=== PATIENT | female | born 1950 | race Caucasian/White ===

== ENCOUNTER 2024-12-21 09:08 | Outpatient (CLI) | payer MEDICARE, SELFPAY ==
--- OUTSIDE RECORDS SUMMARY | 2024-12-21 09:31 | XMS_ITS | Referral Summary ---
Author Organization [facility] Address [address] [place] [phone] Care Team Providers Care Event Crew Technician Name Role Phone Sebastian Colmenares MD Primary Care Provider [phone] Encounters Date Type Department Care Team Description 12/18/2024 9:40 AM CDT - 12/18/2024 11:59 PM CDT Hospital Encounter [facility] Medical Office Building [address] [place] [phone] Varicose veins of leg with pain, right Discharge Disposition: Discharge to home or self care 12/15/2024 7:22 AM CDT - 12/15/2024 11:59 PM CDT Hospital Encounter [facility] Office Building [address] [place] [phone] Varicose veins of leg with pain, right Discharge Disposition: Discharge to home or self care 12/14/2024 Documentation [facility] Vascular and Vein Surgery [address] [place] [phone] Carmen Wolff MA 12/14/2024 Orders Only [facility] Vascular and Vein Surgery [address] [place] [phone] Josiah Higgins MD 12/13/2024 Telephone [facility] Vascular and Vein Surgery [address] [place] [phone] Josiah Higgins MD 11/29/2024 1:15 PM CDT Office Visit [facility] Orthopedics and Sports Medicine [address] [place] [address], [place] [phone] Luis Alberto Georges PA Trochanteric bursitis of left hip (Primary Dx) 09/29/2024 Documentation [facility] Vascular and Vein Surgery [address] [facility] [address] [place] [phone] Proper, Ester Lundberg RN from Last 3 Months Allergies Active Allergy Reactions Criticality Noted Date Comments Amlodipine Dizziness Low 10/14/2017 Iodine Rash Medium 06/19/2020 Medications atorvastatin (LIPITOR) 20 mg tabletIndication s:hyperlipidemia Take 0.5 tablets (10 mg total) by mouth nightly 0 Active cholecalciferol (VITAMIN D-3) 25 mcg (1,000 unit) tabletIndication s:Prevention of Vitamin D Deficiency Take 1 tablet (1,000 Units total) by mouth daily after lunch [address] (NexIUM) 40 mg capsuleIndicatio ns:Stress Ulcer Prophylaxis,Ashley tment of Non-Bleeding Gastric Disorder Take 1 capsule (40 mg total) by mouth daily before breakfast 0 Active estradioL (VAGIFEM) 10 mcg tablet INSERT 1 TABLET VAGINALLY TWICE A WEEK 0 Active valsartan-hydroc hlorothiazide (DIOVAN-HCT) 160-25 mg per tabletIndication s:hypertension Take 1 tablet by mouth every morning 0 Active cyclobenzaprine (FLEXERIL) 10 mg tabletIndication s:Muscle Spasm Take 1 tablet (10 mg total) by mouth as needed 1 Active Ca carb-Ca gluc-Mg ox-Mg gluco 500 mg calcium -250 mg tabletIndication s:Hypocalcemia Prevention Take 500 mg by mouth daily after lunch Active coenzyme Q10 100 mg capsuleIndicatio ns:supplement Take 1 capsule (100 mg total) by mouth nightly Active lactobacillus combination no.9 4 billion cell capsuleIndicatio ns:supplement Take 1 tablet by mouth nightly Active cyanocobalamin, vitamin B-12, 1,000 mcg/mL dropsIndications :Prevention of Vitamin B12 Deficiency Take 1,000 mcg by mouth nightly Active buPROPion XL (WELLBUTRIN XL) 300 mg 24 hr tabletIndication s:Anxiety with Depression Take 1 tablet (300 mg total) by mouth as needed 1 Active ascorbic acid (VITAMIN C) 500 mg tablet,chewableI ndications:suppl ement Take 1 tablet/chew tab (500 mg total) by mouth every morning Active melatonin tabletIndication s:sleep Take 1 tablet (1 mg total) by mouth nightly as needed for sleep Active loratadine (CLARITIN) 10 mg tabletIndication s:Allergic Rhinitis Take 1 tablet (10 mg total) by mouth as needed for allergies Active acetaminophen 500 mg capsuleIndicatio ns:Pain Take 2 capsules (1,000 mg total) by mouth every 6 (six) hours as needed for pain 2 Active oxyCODONE (ROXICODONE) 5 mg immediate release tabletIndication s:Pain Take 1 tablet (5 mg total) by mouth every 6 (six) hours as needed for pain 60 tablet 2 Active Additional Information Patient not taking.Reported on 08/31/2024 cefuroxime (CEFTIN) 250 mg tablet 2 Active ergocalciferol (VITAMIN D) 50,000 unit capsule TAKE 1 CAPSULE BY MOUTH TWICE A MONTH 2 Active gabapentin (NEURONTIN) 100 mg capsuleIndicatio ns:History of lumbar surgery,Degenera tive disc disease, lumbar,DDD (degenerative disc disease), lumbar Take 1 capsule (100 mg total) by mouth 3 (three) times a day 90 capsule [address] (CYMBALTA) 60 mg capsule 3 Active ALPRAZolam (XANAX) 0.5 mg tablet Bring both tablets to office day of procedure. 2 tablet 5 Active Hospital, Clinic, or Other Facility Administered Medication Ordered Dose Route Frequency Start Date End Date Status lidocaine (XYLOCAINE) 10 mg/mL (1 %) injection 1 mLIndications:Admi nistration of Local Anesthesia 1 mL One-Time Injection 11/29/2024 11/29/2024 Ended triamcinolone (KENALOG) 40 mg/mL injection 40 mgIndications:Troc hanteric bursitis of left hip 40 mg intra-artic One-Time Injection 11/29/2024 11/29/2024 Ended Active Problems Problem Noted Date Diagnosed Date Varicose veins of leg with pain, right 5 Varicose veins of lower extremity with pain, rig ht 08/31/2024 Assessment & Plan (08/31/2024 10:20 AM ETL LEAD): Patient has significant reflux at the right saphenofemoral junction with large varicosities of the right lower extremity that are persistently painful. She has tried and failed conservative measures I have recommended proceeding with radiofrequency ablation of the right great saphenous vein with phlebectomies. The procedure indications and all associated risks have been explained to the patient. She voiced understanding and agrees to proceed. Trochanteric bursitis of left hip 05/01/2022 Lumbar disc disease 03/06/2022 Lumbar radiculopathy 03/05/2022 Degeneration of intervertebral disc of cervical region 10/14/2017 Spinal stenosis of lumbar region 04/23/2016 Immunizations Immunization Administration Dates Next Due Influenza, Quadrivalent, Rec ombinant, Egg Free, Preservative Free, Intramuscular 07/05/2021 Influenza, Quadrivalent, Spl it, Preservative Free, Intramuscular 07/25/2020,07/28/2019,07/12/2018 Influenza, Trivalent, Preser vative Free, Intramuscular 06/20/2017 Pfizer SARS-CoV-2 Monovalent Vaccination (12+ Yrs) PURPLE 09/23/2021 ZOSTER LIVE 05/29/2015 Social History Tobacco Use Types Packs/Day Years Used Date Smoking Tobacco: Former Cigarettes 0.3 10 1 975 - 1985 Smokeless Tobacco: Never Tobacco Cessation:Counseling Given: Not Answered AUDIT-C Answer Date Recorded Q1: How often do you have a drink containing alcohol? Never 04/24/2024 Q2: How many drinks containi ng alcohol do you have on a typical day when you are drinking? Patient does not drink Q3: How often do you have si x or more drinks on one occasion? Never 04/24/2024 Comments No Sex and Gender Information Value Date Recorded Sex Assigned at Not on file Legal Sex Female 10:24 AM ETL LEAD Gender Identity Not on file Sexual Orientation Not on file Last Filed Vital Signs Vital Sign Reading Time Taken Comments Blood Pressure 145/86 12/15/2024 10:19 AM CDT Pulse 77 12/15/2024 10:19 AM CDT Temperature 36.5 C (97.7 F) 03/06/2022 11:24 AM CDT Respiratory Rate 18 04/24/2024 9:36 AM CDT Oxygen Saturation 96% 04/24/2024 9:36 AM CDT Inhaled Oxygen Concentration - - Weight 76.2 kg (168 lb) 11/29/2024 1:04 PM CDT Height 157.5 cm (5' 2 ) 11/29/2024 1:04 PM CDT Body Mass Index 30.73 11/29/2024 1:04 PM CDT Plan of Treatment Not on file Goals Goal Patient Goal Type Associated Problems Recent Progress Patient-Stated? Author CCM Chronic Pain Care Plan Chronic Care Management On track(2020 7:45 AM ETL LEAD) Mulu Callahan, RN Note: Problem: Chronic Pain Goals: 1. Minimize further functional decline 2. Maximize quality of life 3. Control pain Strategies: - Activity/exercise program recommendation - Conservative stepwise pain medicine strategy with multi-disciplinary approach - Recommend healthy lifestyle strategies and compensatory methods as needed Procedures Procedure Name Priority Date/Time Associated Diagnosis Comments US VEIN DUPLEX LOWER EXTREMITY RIGHT LIMITED Schedule Routine, Read Routine (OP Routine) 12/18/2024 12:36 PM CDT Varicose veins of leg with pain, right MI ARTHROCENTESIS ASPIR&/INJ MAJOR JT/BURSA W/O US Routine 11/29/2024 1:15 PM CDT Trochanteric bursitis of left hip DEXA AXIAL SKELETON BONE DENSITY 1 OR MORE SITES Schedule Routine, Read Routine (OP Routine) 11/14/2021 7:54 AM ETL LEAD Spinal stenosis of lumbar region with radiculopathy from Last 3 Months or Most Recently Relevant to Health Maintenance Results * US VEIN DUPLEX LOWER EXTREMITY RIGHT LIMITED, UNILATERAL (12/18/2024 12:36 PM CDT) Anatomical Region Laterality Modality Vascular Right Ultrasound 12/18/2024 9:54 AM CDT Narrative 12/19/2024 7:55 AM CDT Lower Extremity Venous Report Patient Name: RYDER BOYD M : 1950 (74y 2m) Gender: F Study Date: 12/18/2024 09:54:26 AM Log Cooker: Bess Parker Provider: JOSIAH HIGGINS Quality: Adequate Ref Provider: JOSIAH HIGGINS PROCEDURES: Vascular Report: A non-invasive vascular imaging study of the right lower extremity veins was performed using B-mode ultrasound, color flow, and spectral Doppler. INDICATIONS: I83.811 Varicose veins of right lower extremity with pain. FINDINGS: Right: The right common femoral vein is patent and compressible. Reflux is noted in the common femoral vein. The right great saphenous vein is ablated up to but not into the common femoral vein. Provider Notification: Results called to Taniya Bañuelos NP. CONCLUSIONS: 1. There is no evidence of deep vein thrombosis in the right lower extremity. 3. Successful ablation of the right great saphenous vein. ATTESTATION: I have reviewed and interpreted the pertinent images and measurements of this study. I attest to the conclusions in the final report that is provided above. Electronically Signed By: Josiah Higgins MD 12/19/2024 7:27:43 AM CDT Procedure Note Josiah Higgins MD - 12/19/2024 Lower Extremity Venous Report Patient Name: RYDER BOYD M : 1950 (74y 2m) Gender: F Study Date: 12/18/2024 09:54:26 AM Log Cooker: Bess Parker Provider: JOSIAH HIGGINS Quality: Adequate Ref Provider: JOSIAH HIGGINS PROCEDURES: Vascular Report: A non-invasive vascular imaging study of the right lowerextremity veins was performed using B-mode ultrasound, color flow, and spectral Doppler. INDICATIONS: I83.811 Varicose veins of right lower extremity with pain. FINDINGS: Right: The right common femoral vein is patent and compressible. Reflux isnoted in the common femoral vein. The right great saphenous vein is ablated up to butnot into the common femoral vein. Provider Notification: Results called to Taniya Bañuelos NP. CONCLUSIONS: 1. There is no evidence of deep vein thrombosis in the right lowerextremity. 3. Successful ablation of the right great saphenous vein. ATTESTATION: I have reviewed and interpreted the pertinent images and measurements ofthis study. I attest to the conclusions in the final report that is provided above. Electronically Signed By: Josiah Higgins MD 12/19/2024 7:27:43 AM CDT us Josiah Higgins MD [facility] [place] PROCEDURES Final Re sult * MI ARTHROCENTESIS ASPIR&/INJ MAJOR JT/BURSA W/O US (11/29/2024 1:15 PM CDT) Narrative Luis Alberto Georges PA - 11/29/2024 1:15 PM CDT Luis Alberto Georges PA 11/29/2024 1:14 PM Large Joint (Hip, Knee, Shoulder) Injection: L greater trochanteric bursa Performed by: Luis Alberto Georges PA Authorized by: Luis Alberto Georges PA Large Joint Injection/Aspiration: Consent Given by: Patient Verbal consent obtained: Yes Supporting Documentation: Indications: Pain Procedure Details: Location: Hip Site: L greater trochanteric bursa Prep: patient was prepped using a clean technique Needle Size: 22 G Ultrasound guided: No Medications: 1 mL lidocaine 10 mg/mL (1 %); 40 mg triamcinolone 40 mg/mL Patient tolerance: Patient tolerated the procedure well with no immediate complications us Luis Alberto [facility] IN CLINIC/BEDSIDE ORDERAB LES Final Result * DEXA Axial Skeleton Bone Density Multi Site (11/14/2021 7:54 AM ETL LEAD) Anatomical Region Laterality Modality Body N/A Digital Radiogra phy 11/14/2021 9:44 AM ETL LEAD Impressions 11/14/2021 1:11 PM ETL LEAD 1. The bone mineral density of the lumbar spine is normal. 2. The bone mineral density of the left femoral neck is mildly decreased. 3. The bone mineral density of the left total hip is normal. 4. Overall, the above findings are diagnostic of low bone mass (osteopenia) by WHO criteria. 5. Based on the FRAX fracture risk model, the 10-year probability for major osteoporotic fracture is 12% and that for hip fracture is 2.8%. This 10-year fracture risk estimate was calculated using the risk factors noted in the history above, along with the femoral neck bone density. FRAX is intended to help guide treatment decisions in men over age 50 and postmenopausal women with low bone mass (osteopenia). The National Osteoporosis Foundation (NOF) recommends that FDA-approved medical therapies be considered in postmenopausal women and men age 50 years and older with osteoporosis and those with low bone mass whose 10-year fracture probability by FRAX is >= 20% for major osteoporotic fracture or >= 3% for hip fracture. However, all treatment decisions require clinical judgment and consideration of individual patient factors, including patient preferences, comorbidities, previous drug use, risk factors not captured in the FRAX model (e.g., frailty, falls, vitamin D deficiency, increased bone turnover, interval significant decline in bone density) and possible under- or overestimation of fracture risk by FRAX. General comments regarding interpretation of bone density measurements: A) In children, premenopausal woman and males under age 50 not at increased risk for fractures only Z-scores, not T-scores are used to indicate risk. A Z-score above -2.0 is defined as within the expected range for age and Z-score at or less than -2.0 is below the expected range for age . A Z-score below the expected range for age in a patient with recent fractures and/or chronic corticosteroid treatment is consistent with a diagnosis of osteoporosis. B) In post menopausal women and males over 50, comparison of the measured bone mineral density with the average value in young normal subjects (the T-score ) has been found to be useful in assessing fracture risk. Fracture risk approximately doubles for each 1.0 standard deviation (SD) in individual's hip or spine bone mineral density is below the average value of young normal subjects. The World Health Organization (WHO) has defined T-scores of -1.0 to -2.5 as diagnostic of low bone mass (OSTEOPENIA), and T-scores of -2.5 or lower to be diagnostic of OSTEOPOROSIS, based on the site of lowest bone density. Note that there will be a change in reporting format and reference databases as patients move from the younger population (group A) to the older population (group B) The National Osteoporosis Foundation (www.nof.org) recommends adequate intake of calcium and vitamin D and regular weight-bearing exercise in all patients. They recommend pharmacologic treatment in postmenopausal women and men age 50 and older presenting with any of the followin) Osteoporosis, after appropriate evaluation to exclude secondary causes. 2) A hip or vertebral (clinical or radiographic) fracture, regardless of the bone density. 3) Low bone mass (Osteopenia) and one or more of: other prior fractures, secondary causes associated with high risk of fracture (such as glucocorticoid use or total immobilization), or computed high risk of fracture (10-yr probability of hip fracture >= 3% or a 10-yr probability of any major osteoporosis-related fracture >= 20% based on the [place].-adapted WHO algorithm), available at http://www.shef.ac.uk/FRAX). Dictated by: Skinny Smalls MD The radiology attending physician has personally reviewed this study, and had reviewed and/or edited this written report and agrees with it. Electronically signed by: Elaine Graff M.D. Narrative 11/14/2021 1:11 PM ETL LEAD BONE DENSITOMETRY OF THE SPINE AND HIP DATE OF STUDY: 11/14/2021 HISTORY: 71-year-old postmenopausal woman with history of bilateral salpingo-oophorectomy (during late 50s), L3/L4 laminectomy. She is being treated with vitamin D and calcium. Evaluate bone mineral density. Additional risk factors for fracture: none. FINDINGS (SPINE): The bone mineral density of L1-L4 was assessed by dual-energy x-ray absorptiometry. The average bone mineral density within this region is 1.058 gm/sq-cm. This is 2.4 standard deviations above the mean of the average bone mineral density for age- and gender-matched subjects (the Z-score). It is 0.1 standard deviations above the mean peak bone mineral density in young adults (the T-score). FINDINGS (FEMORAL NECK): The bone mineral density of the left femoral neck was assessed by dual-energy x-ray absorptiometry. The average bone mineral density within the femoral neck region is 0.616 gm/sq-cm. This is 0.1 standard deviations below the mean of the average bone mineral density for age- and gender-matched subjects (the Z-score). It is 2.1 standard deviations below the mean peak bone mineral density in young adults (the T-score). FINDINGS (TOTAL HIP): The bone mineral density of the left hip was assessed by dual-energy x-ray absorptiometry. The average bone mineral density within the total hip region is 0.832 gm/sq-cm. This is 0.8 standard deviations above the mean of the average bone mineral density for age- and gender-matched subjects (the Z-score). It is 0.9 standard deviations below the mean peak bone mineral density in young adults (the T-score). SUMMARY OF CURRENT RESULTS: Region BMD T-score Z-score AP Spine (L1-L4) 1.058 0.1 2.4 Femoral Neck (Left) 0.616 -2.1 -0.1 Total Hip (Left) 0.832 -0.9 0.8 Procedure Note Elaine Graff MD - 11/14/2021 BONE DENSITOMETRY OF THE SPINE AND HIP DATE OF STUDY: 11/14/2021 HISTORY: 71-year-old postmenopausal woman with history of bilateral salpingo-oophorectomy (during late 50s), L3/L4 laminectomy. She is being treated with vitamin D and calcium. Evaluate bone mineral density. Additional risk factors for fracture: none. FINDINGS (SPINE): The bone mineral density of L1-L4 was assessed by dual-energy x-ray absorptiometry. The average bone mineral density within this region is 1.058 gm/sq-cm. This is 2.4 standard deviations above the mean of the average bone mineral density for age- and gender-matched subjects (the Z-score). It is 0.1 standard deviations above the mean peak bone mineral density in young adults (the T-score). FINDINGS (FEMORAL NECK): The bone mineral density of the left femoral neck was assessed by dual-energy x-ray absorptiometry. The average bone mineral density within the femoral neck region is 0.616 gm/sq-cm. This is 0.1 standard deviations below the mean of the average bone mineral density for age- and gender-matched subjects (the Z-score). It is 2.1 standard deviations below the mean peak bone mineral density in young adults (the T-score). FINDINGS (TOTAL HIP): The bone mineral density of the left hip was assessed by dual-energy x-ray absorptiometry. The average bone mineral density within the total hip region is 0.832 gm/sq-cm. This is 0.8 standard deviations above the mean of the average bone mineral density for age- and gender-matched subjects (the Z-score). It is 0.9 standard deviations below the mean peak bone mineral density in young adults (the T-score). SUMMARY OF CURRENT RESULTS: Region BMD T-score Z-score AP Spine (L1-L4) 1.058 0.1 2.4 Femoral Neck (Left) 0.616 -2.1 -0.1 Total Hip (Left) 0.832 -0.9 0.8 IMPRESSION: 1. The bone mineral density of the lumbar spine is normal. 2. The bone mineral density of the left femoral neck is mildly decreased. 3. The bone mineral density of the left total hip is normal. 4. Overall, the above findings are diagnostic of low bone mass (osteopenia) by WHO criteria. 5. Based on the FRAX fracture risk model, the 10-year probability for major osteoporotic fracture is 12% and that for hip fracture is 2.8%. This 10-year fracture risk estimate was calculated using the risk factors noted in the history above, along with the femoral neck bone density. FRAX is intended to help guide treatment decisions in men over age 50 and postmenopausal women with low bone mass (osteopenia). The National Osteoporosis Foundation (NOF) recommends that FDA-approved medical therapies be considered in postmenopausal women and men age 50 years and older with osteoporosis and those with low bone mass whose 10-year fracture probability by FRAX is >= 20% for major osteoporotic fracture or >= 3% for hip fracture. However, all treatment decisions require clinical judgment and consideration of individual patient factors, including patient preferences, comorbidities, previous drug use, risk factors not captured in the FRAX model (e.g., frailty, falls, vitamin D deficiency, increased bone turnover, interval significant decline in bone density) and possible under- or overestimation of fracture risk by FRAX. General comments regarding interpretation of bone density measurements: A) In children, premenopausal woman and males under age 50 not at increased risk for fractures only Z-scores, not T-scores are used to indicate risk. A Z-score above -2.0 is defined as within the expected range for age and Z-score at or less than -2.0 is below the expected range for age . A Z-score below the expected range for age in a patient with recent fractures and/or chronic corticosteroid treatment is consistent with a diagnosis of osteoporosis. B) In post menopausal women and males over 50, comparison of the measured bone mineral density with the average value in young normal subjects (the T-score ) has been found to be useful in assessing fracture risk. Fracture risk approximately doubles for each 1.0 standard deviation (SD) in individual's hip or spine bone mineral density is below the average value of young normal subjects. The World Health Organization (WHO) has defined T-scores of -1.0 to -2.5 as diagnostic of low bone mass (OSTEOPENIA), and T-scores of -2.5 or lower to be diagnostic of OSTEOPOROSIS, based on the site of lowest bone density. Note that there will be a change in reporting format and reference databases as patients move from the younger population (group A) to the older population (group B) The National Osteoporosis Foundation (www.nof.org) recommends adequate intake of calcium and vitamin D and regular weight-bearing exercise in all patients. They recommend pharmacologic treatment in postmenopausal women and men age 50 and older presenting with any of the followin) Osteoporosis, after appropriate evaluation to exclude secondary causes. 2) A hip or vertebral (clinical or radiographic) fracture, regardless of the bone density. 3) Low bone mass (Osteopenia) and one or more of: other prior fractures, secondary causes associated with high risk of fracture (such as glucocorticoid use or total immobilization), or computed high risk of fracture (10-yr probability of hip fracture >= 3% or a 10-yr probability of any major osteoporosis-related fracture >= 20% based on the [place].-adapted WHO algorithm), available at http://www.shef.ac.uk/FRAX). Dictated by: Skinny Smalls MD The radiology attending physician has personally reviewed this study, and had reviewed and/or edited this written report and agrees with it. Electronically signed by: Elaine Graff M.D. Henry Hawthorne MD IMG DXA PROCEDURES Final Result from Last 3 Months or Most Recently Relevant to Health Maintenance Insurance [employer] MEDICARE MEDICARE [employer] MEDICARE [employer] Advance Directives For more information, please contact: [phone] Documents on File Type Date Recorded Patient Rope Rider Expl anation ADVANCE DIRECTIVE 06/08/2016 12:00 AM TAMI Lopez OF TRANSLITERATOR FINANCIAL/MEDICAL Care Teams Event Crew Technician Relationship Specialty Start Date End Date Sebastian Colmenares MD [address] [address] PCP - General 11/01/17
--- OUTSIDE RECORDS SUMMARY | 2024-12-21 09:31 | XMS_ITS | Clinical Summary ---
Author Organization [facility] Address [address] [place] [id number] Care Team Providers Care Shipwright Helper Name Role Phone Sebastian Colmenares MD Primary Care Provider [phone] Allergies Active Allergy Reactions Criticality Noted Date [...] Varicose veins of leg with pain, right Varicose veins of lower extremity with pain, rig ht 08/31/2024 Assessment & Plan (08/31/2024 10:20 AM CLAY TRANSPORTER): Patient has significant reflux at the right [...] 10/14/2017 Spinal stenosis of lumbar region 04/23/2016 Encounters Date Type Department Care Team Description 12/18/2024 9:40 AM CDT - 12/18/2024 11:59 PM CDT Hospital Encounter [facility] [address] [place] [address] Varicose veins of leg with pain, right Discharge Disposition: Discharge to home or self care 12/15/2024 7:22 AM CDT - 12/15/2024 11:59 PM CDT Hospital Encounter [facility] [address] [place] [id number] Varicose veins of leg with pain, right Discharge Disposition: Discharge to home or self care 12/14/2024 Documentation [facility] [address] [place] [address] [place] [phone] Carmen Wolff MA 12/14/2024 Orders Only [facility] V[facility] Vein Surgery [address] [place] [address] [address] [place] [phone] Josiah Higgins MD 12/13/2024 Telephone [facility] Vascular and Vein Surgery [address] [place] [phone] Josiah Higgins MD 11/29/2024 1:15 PM CDT Office Visit [facility]ics and [facility] Medicine [address] [place] [phone] Luis Alberto Georges PA Trochanteric bursitis of left hip (Primary Dx) 09/29/2024 Documentation [facility] V[facility] and Vein Surgery [address] [facility] [place] [address] Ester Middleton RN from Last 3 Months Immunizations Immunization Administration Dates Next Due Influenza, Quadrivalent, Rec ombinant, Egg Free, Preservative Free, Intramuscular 07/05/2021 Influenza, Quadrivalent, Spl it, Preservative Free, Intramuscular 07/25/2020,07/28/2019,07/12/2018 Influenza, Trivalent, Preser vative Free, Intramuscular 06/20/2017 Pfizer SARS-CoV-2 Monovalent Vaccination (12+ Yrs) PURPLE 09/23/2021 ZOSTER LIVE 05/29/2015 Surgical History Surgery Date Site/Laterality Comments BACK SURGERY SALPINGOOPHORECTOMY FINGER SURGERY Right OOPHERECTOMY Medical History Medical History Date Comments Hypercholesterolemia HTN (hypertension) Gastric reflux Disc disorder of lumbar region Lumbar stenosis Osteopenia Rheumatoid arthritis (HCC) Low back pain Light sensitivity Ankle swelling Heartburn Headache PONV (postoperative nausea and vomiting) Family History Medical History Relation Name Comments Diabetes Brother Diabetes Father Heart disease Father Heart disease Maternal Grandfather Stroke Maternal Grandmother Heart disease Mother Diabetes Other 1 Diabetes Mellit us - (Added by Conv) Hypertension Other 2 Hypertension - (Added by Conv) Heart disease Other 3 Heart Disease - (Added by Conv) Diabetes Sister Anesthesia problems Neg Hx Relation Name Status Comments Brother Father Maternal Grandfather Maternal Grandmother Mother Other 1 Other 2 Other 3 Sister Social History Tobacco Use Types Packs/Day Years Used Date Smoking Tobacco: Former Cigarettes 0.3 10 1 975 - 1984 Smokeless Tobacco: Never Tobacco Cessation:Counseling Given: Not [...] on file Legal Sex Female 10:24 AM CLAY TRANSPORTER Gender Identity Not on file Sexual Orientation Not on file Obstetrics History Last Filed Vital Signs Vital Sign Reading [...] 11/29/2024 1:04 PM CDT Plan of Treatment Health Maintenance Due Date Last Done Comments Depression Screening 1950 Hepatitis C Screening 1950 DTaP/Tdap/Td Vaccine (1 - Tdap) 1959 Hepatitis B Screening 1966 Pneumococcal vaccine 65+ (1 of 2 - PCV) 1967 Well Visit 65+ 2013 Zoster Vaccine (1 of 2) 07/24/2015 05/29/2015 Fall Risk Assessment 03/06/2023 03/06/2022 Covid-19 Vaccine (4 - 2023-2 5 season) 2024 09/23/2021, 01/08/2021, 12/11/2020 Influenza Vaccine (Season Ended) 2025 07/05/2021, 07/25/2020, 07/28/2019, Additional history exists Osteoporosis Screening-Bone Density Scan 11/03/2025 11/03/2023, 11/14/2021, 05/19/2017, Additional history exists Breast Cancer Screening-Mammogram Discontinued 08/14/2024, 08/14/2024, 08/10/2023, Additional history exists Goals Goal Patient Goal Type Associated Problems Recent Progress Patient-Stated? Author CCM Chronic Pain Care Plan Chronic Care Management On track(2020 7:45 AM CLAY TRANSPORTER) Mulu Callahan, RN Note: Problem: Chronic Pain [...] Varicose veins of leg with pain, right MT ARTHROCENTESIS ASPIR&/INJ MAJOR JT/BURSA W/O US Routine 11/29/2024 1:15 PM CDT Trochanteric bursitis of left hip DEXA AXIAL SKELETON BONE DENSITY 1 OR MORE SITES Schedule Routine, Read Routine (OP Routine) 11/14/2021 7:54 AM CLAY TRANSPORTER Spinal stenosis of lumbar region with radiculopathy [...] Gender: F Study Date: 12/18/2024 09:54:26 AM Sales Administration Manager: Bess Parker Provider: JOSIAH HIGGINS Quality: Adequate [...] Gender: F Study Date: 12/18/2024 09:54:26 AM Sales Administration Manager: Bess Parker Provider: JOSIAH HIGGINS Quality: Adequate [...] 7:27:43 AM CDT us Josiah Higgins MD IMG US PROCEDURES Final Re sult * MT ARTHROCENTESIS ASPIR&/INJ MAJOR JT/BURSA W/O US (11/29/2024 [...] Bone Density Multi Site (11/14/2021 7:54 AM CLAY TRANSPORTER) Anatomical Region Laterality Modality Body N/A Digital Radiogra phy 11/14/2021 9:44 AM CLAY TRANSPORTER Impressions 11/14/2021 1:11 PM CLAY TRANSPORTER 1. The bone mineral density of the [...] Elaine Graff M.D. Narrative 11/14/2021 1:11 PM CLAY TRANSPORTER BONE DENSITOMETRY OF THE SPINE AND HIP [...] Most Recently Relevant to Health Maintenance Insurance [employer] MEDICARE MEDICARE [employer] MEDICARE [employer] Advance Directives For more information, please contact: [phone] Documents on File Type Date Recorded Patient Windows 7 Deployment Lead Expl anation ADVANCE DIRECTIVE 06/08/2016 12:00 AM TAMI Lopez OF [employer] FINANCIAL/MEDICAL Care Teams Shipwright Helper Relationship Specialty Start Date End Date Sebastian Colmenares MD [address] [facility] [address] [place] [address] PCP - General 11/01/17
--- OUTSIDE RECORDS SUMMARY | 2024-12-21 09:31 | XMS_ITS | Encounter Summary ---
Author Organization [facility] Care Team Providers Care Egg Processing Supervisor Name Role Phone Sebastian Colmenares MD Primary Care Provider [phone] Miscellaneous, Not In File Primary Care Provider Unavailable Sebastian Colmenares MD Primary Care Provider [phone] Encounter Details Date Type Department Care Team (Latest Contact Info) Description 06/26/2016 Orders Only [facility] ProviderTesha MD [address] [place] [id number] Social History Tobacco Use Types Packs/Day Years Used Date Smoking Tobacco: Never Assessed Comments Unknown Sex and Gender Information Value Date Recorded Sex Assigned at Not on file Legal 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 Historical Provider Final Res ult * SCAN - LABS (06/26/2016 12:00 AM CDT) Narrative 06/26/2016 12:00 AM CDT Ordered by an unspecified provider. us Historical Provider Final Res ult documented in this encounter Visit Diagnoses Not on filedocumented in this encounter Additional Health Concerns Infection Onset Date Last Indicated Resolved Time COVID19 03/05/2022 03/05/2022 03/16/2022 3:05 AM CDT COVID: Recovered Comment:Added based on recent COVID infection. 03/16/2022 03/18/2022 07/14/2022 3:05 AM C DT documented as of this encounter Care Teams Egg Processing Supervisor Relationship Specialty Start Date End Date Sebastian Colmenares MD [address] [facility] [address] [place] [address] PCP - General 09/06/17 10/13/17 Miscellaneous, Not In File PCP - General 10/14/17 Sebastian Colmenares MD [address] [facility] [address] [place] [address] PCP - General 11/01/17 documented as of this encounter
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
--- OUTSIDE RECORDS SUMMARY | 2024-12-21 09:31 | XMS_ITS | Encounter Summary ---
Author Organization [facility] Facility Care Team Providers Care Test Baker Name Role Phone Sebastian Colmenares MD Primary Care Provider [phone] Miscellaneous, Not In File Primary Care Provider Unavailable Sebastian Colmenares MD Primary Care Provider [phone] Encounter Details Date Type Department Care Team (Latest Contact Info) Description 05/21/2016 Orders Only [facility] CLINCONV ProviderTesha MD [address] [place] [id number] Social History Tobacco Use Types Packs/Day Years Used Date Smoking Tobacco: Never Assessed Comments Unknown Sex and Gender Information Value Date Recorded Sex Assigned at Not on file 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 Historical Provider Final Res ult * PROCEDURE - RESULT (05/21/2016 12:00 AM CDT) Narrative 05/21/2016 12:00 AM CDT Ordered by an unspecified [...] documented as of this encounter Care Teams Test Baker Relationship Specialty Start Date End Date Sebastian Colmenares MD [address] [facility] [address] [place] [address] PCP - General 09/06/17 10/13/17 Miscellaneous, Not In File PCP - General 10/14/17 Sebastian Colmenares MD [address] [facility] [address] [place] [address] PCP - General 11/01/17 documented as of this encounter
[2024-12-21 10:19] LABS: Anion Gap 6 mmol/L (4-12); Blood Urea Nitrogen 19 mg/dL (7-17); Calcium 9.4 mg/dL (8.4-10.2); Carbon Dioxide 31 mmol/L (22-30); Chloride 100 mmol/L (98-107); Estimated Glomerular Filt Rate > 60; Glucose 103 mg/dL (65-110); Potassium 4.7 mmol/L (3.4-5.0); Sodium 137 mmol/L (137-145)
== END 2024-12-21 09:09 | disposition home or self-care (01) ==
PROVIDERS: Anesthesiology; PCP Family Medicine; Visit Provider Obstetrics & Gynecology Gynecology
DX: Z79.899 Other long term (current) drug therapy (principal)
CPT/HCPCS: 36415; 80048

== ENCOUNTER 2025-01-01 00:59 | Day surgery (SDC) | payer MEDICARE, SELFPAY ==
[2024-12-19 14:39] VITALS: BMI 31.0
--- NOTE | 2024-12-19 15:06 | PC.NURSE ---
Report to the Outpatient Waiting Room, entrance under the green pavilion located off [facility], at time __0900am on date __01/01/25 . Planned Procedure Time: 1100am .? Time changes happen often and if your time is changed the preop area will call you the afternoon before. - You and your visitor will be asked to self-screen and do not enter if you have any COVID symptoms. Please call surgeon if you need to reschedule. - A mask is optional within the hospital at this time. Patients may have clear liquids (water, carbonated beverages, clear teas, apple juice) until 3 hours prior to surgery with a maximum of 20 ounces. - No food from midnight until time of surgery and no smoking, or chewing tobacco (or any form of nicotine). No chewing gum, candy or mints. ( 08:00am) Take only the following medications with a SIP of water on the morning of surgery: ___Tylenol if needed DO NOT STOP ANY OF YOUR OTHER PRESCRIPTION MEDICATIONS PRIOR TO SURGERY EXCEPT THE FOLLOWING Hold all vitamins and supplements for 3 days per anesthesiologist.Date to take last dose__12/28/24 Medications to discontinue per physician None Date to take last dose None Please no make-up, nail bahamian, hairspray, perfume, deodorant, or body powder the day of surgery.? No jewelry (including any body piercings) or valuables the day of surgery, leave them at home.? Please take a shower or bath the night before, or the morning of, surgery with an antibacterial soap.? Wear comfortable, loose fitting clothing.? - Jewelry must be removed prior to entering the operating room.? Rings and piercings that are not removed may be cut off. - The hospital will not accept responsibility for valuables.? - Please leave all valuables, including medications, at home the day of surgery. If you are going home after surgery, a licensed [employer] driver must drive you home.? - NO public transportation without another adult if you receive anesthesia. - We recommend that an adult stay with you for 24 hours following discharge. - We also recommend that you do not drive, make important decision, drink alcoholic beverages, or take any drugs that were not prescribed by your health care provider for at least 24 hours after your discharge time. Follow any additional instructions given to you from your surgeon. Telephone instructions given to ___Patient and asked if any additional questions and then verbalized understanding. Patient advised to call surgeon office or pre surgery nurse liaison [phone] if any additional questions.
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
--- OUTSIDE RECORDS SUMMARY | 2025-01-01 01:03 | XMS_ITS | Encounter Summary ---
Author Organization [facility] Facility Care Team Providers Care Carpet Binder Name Role Phone Sebastian Colmenares MD Primary Care Provider [phone] Miscellaneous, Not In File Primary Care Provider Unavailable Sebastian Colmenares MD Primary Care Provider +1 -[phone] Encounter Details Date Type Department Care Team (Latest Contact Info) Description 05/21/2016 Orders Only [facility] CLINCONV ProviderTesha MD [address] [place] [address] Social History Tobacco Use Types Packs/Day Years Used Date Smoking Tobacco: Never Assessed Comments Unknown Sex and Gender Information Value Date Recorded Sex Assigned at Not on file Legal Sex Female 10:24 AM DRY WALL SPRAYER Gender Identity Not on file Sexual Orientation [...] documented as of this encounter Care Teams Carpet Binder Relationship Specialty Start Date End Date Sebastian Colmenares MD [address] [facility] [address] [place] [address] PCP - General 09/06/17 10/13/17 Miscellaneous, Not In File PCP - General 10/14/17 Sebastian Colmenares MD [address] [facility] [address] [place] [address] PCP - General 11/01/17 documented as of this encounter
--- OUTSIDE RECORDS SUMMARY | 2025-01-01 01:03 | XMS_ITS | Clinical Summary ---
Author Organization [facility] Address [address] [place] [phone] Care Team Providers Care Rn Plastics Name Role Phone Sebastian Colmenares MD Primary Care Provider [phone] [phone] Allergies Active Allergy Reactions Criticality Noted Date [...] day of procedure. 2 tablet 5 Active Active Problems Problem Noted Date Diagnosed Date Varicose veins of leg with pain, right 5 Varicose veins of lower extremity with pain, rig ht 08/31/2024 Assessment & Plan (08/31/2024 10:20 AM FLARE MAN): Patient has significant reflux at the right [...] - 12/18/2024 11:59 PM CDT Hospital Encounter [facility] [address] [place] [address] Varicose veins of leg with pain, right Discharge Disposition: Discharge to home or self care 12/15/2024 7:22 AM CDT - 12/15/2024 11:59 PM CDT Hospital Encounter [facility] [address] [place] [address] [address] [place] [address] Varicose veins of leg with pain, right Discharge Disposition: Discharge to home or self care 12/14/2024 Documentation [facility] Vascular and Vein Surgery [address] [place] [phone] Carmen Wolff MA 12/14/2024 Orders Only [facility] Vascular and Vein Surgery [address] [place] [address] [address] [place] [phone] Papo Higgins MD 12/13/2024 Telephone [facility] Vascular and Vein Surgery [address] [place] [phone] Papo Higgins MD 11/29/2024 1:15 PM CDT Office Visit [facility] Orthopedics and Sports Medicine [address] [place] [address] [address] [place] [phone] Luis Alberto Georges PA Trochanteric bursitis of left hip (Primary Dx) from Last 3 Months Immunizations Immunization Administration [...] 1 Diabetes Mellit us - (Added by TW Conv) Hypertension Other 2 Hypertension - (Added by TW Conv) Heart disease Other 3 Heart Disease - (Added by TW Conv) Diabetes Sister Anesthesia problems Neg Hx [...] on file Legal Sex Female 10:24 AM FLARE MAN Gender Identity Not on file Sexual Orientation [...] Fall Risk Assessment 03/06/2023 03/06/2022 Covid-19 Vaccine ( - 2023-2 5 season) 2024 09/23/2021, 01/08/2021, 12/11/2020 Influenza Vaccine (Season Ended) 2025 07/05/2021, 07/25/2020, 07/28/2019, Additional history exists Osteoporosis Screening-Bone Density Scan 11/03/2025 11/03/2023, 11/14/2021, 05/19/2017, Additional history exists Breast Cancer Screening-Mammogram Discontinued 08/14/2024, 08/14/2024, 08/10/2023, Additional history exists Goals Goal Patient Goal Type Associated Problems Recent Progress Patient-Stated? Author CCM Chronic Pain Care Plan Chronic Care Management On track(2020 7:45 AM FLARE MAN) Mulu Callahan, RN Note: Problem: Chronic Pain [...] Varicose veins of leg with pain, right GA ARTHROCENTESIS ASPIR&/INJ MAJOR JT/BURSA W/O US Routine 11/29/2024 1:15 PM CDT Trochanteric bursitis of left hip DEXA AXIAL SKELETON BONE DENSITY 1 OR MORE SITES Schedule Routine, Read Routine (OP Routine) 11/14/2021 7:54 AM FLARE MAN Spinal stenosis of lumbar region with radiculopathy from Last 3 Months or Most Recently Relevant to Health Maintenance Results * US VEIN DUPLEX LOWER EXTREMITY RIGHT LIMITED, UNILATERAL (12/18/2024 12:36 PM CDT) Anatomical Region Laterality Modality Vascular Right Ultrasound 12/18/2024 9:54 AM CDT Narrative 12/19/2024 7:55 AM CDT Lower Extremity Venous Report Patient Name: CHELITA BOYD M : 1950 (74y 2m) Gender: F Study Date: 12/18/2024 09:54:26 AM Weigher And Charger: Bess Parker Provider: PAPO HIGGINS Quality: Adequate Ref Provider: PAPO HIGGINS PROCEDURES: Vascular Report: A non-invasive vascular [...] that is provided above. Electronically Signed By: Papo Higgins MD 12/19/2024 7:27:43 AM CDT Procedure Note Papo Higgins MD - 12/19/2024 Lower Extremity Venous Report Patient Name: CHELITA BOYD M : 1950 (74y 2m) Gender: F Study Date: 12/18/2024 09:54:26 AM Weigher And Charger: Bess Parker Provider: PAPO HIGGINS Quality: Adequate Ref Provider: PAPO HIGGINS PROCEDURES: Vascular Report: A non-invasive vascular [...] that is provided above. Electronically Signed By: Papo Higgins MD 12/19/2024 7:27:43 AM CDT Papo Higgins MD IMG US PROCEDURES Final Re sult * GA ARTHROCENTESIS ASPIR&/INJ MAJOR JT/BURSA W/O US (11/29/2024 1:15 PM CDT) Narrative Luis Alberto Georges PA - 11/29/2024 1:15 PM CDT Luis Alberto Georges PA 11/29/2024 1:14 PM Large Joint (Hip, Knee, Shoulder) Injection: L greater trochanteric bursa Performed by: LuisA lberto Georges PA Authorized by: Luis Alberto Georges [...] the procedure well with no immediate complications Luis Alberto BACA IN CLINIC/BEDSIDE ORDERAB LES Final Result * DEXA Axial Skeleton Bone Density Multi Site (11/14/2021 7:54 AM FLARE MAN) Anatomical Region Laterality Modality Body N/A Digital Radiogra phy 11/14/2021 9:44 AM FLARE MAN Impressions 11/14/2021 1:11 PM FLARE MAN 1. The bone mineral density of the [...] Elaine Graff M.D. Narrative 11/14/2021 1:11 PM FLARE MAN BONE DENSITOMETRY OF THE SPINE AND HIP [...] Most Recently Relevant to Health Maintenance Insurance [employer] MEDICARE MEDICARE [employer] MEDICARE [employer] Advance Directives For more information, please contact: [phone] Documents on File Type Date Recorded Patient Renal Case Manager Expl anation ADVANCE DIRECTIVE 06/08/2016 12:00 AM TAMI R OF BOTTOM BRUSHER FINANCIAL/MEDICAL Care Teams Rn Plastics Relationship Specialty Start Date End Date Sebastian Colemnares MD [address] [address] PCP - General 11/01/17
--- OUTSIDE RECORDS SUMMARY | 2025-01-01 01:03 | XMS_ITS | Referral Summary ---
Author Organization [facility] Address [address] [place] [phone] Care Team Providers Care Wrapping Machine Tender Name Role Phone Sebastian Colmenares MD Primary Care Provider [phone] Encounters Date Type Department Care Team Description 12/18/2024 9:40 AM CDT - 12/18/2024 11:59 PM CDT Hospital Encounter [facility] Building [address] [place] [address] Varicose veins of leg with pain, right Discharge Disposition: Discharge to home or self care 12/15/2024 7:22 AM CDT - 12/15/2024 11:59 PM CDT Hospital Encounter [facility] Office Building [address] [place] [address] Varicose veins of leg with pain, right Discharge Disposition: Discharge to home or self care 12/14/[address] [facility] Medical Group Vascular and Vein Surgery [address] [place] [phone] Carmen Wolff MA 12/14/[address] [facility] Medical [facility] Vascular and Vein Surgery [address] [place] [phone] Papo Higgins MD 12/13/[address] [facility] Medical [facility] Vascular and Vein Surgery [address] [place] [phone] Papo Higgins MD 11/29/2024 1:15 PM CDT Office Visit [facility] Medical Group Orthopedics and Sports Medicine [address] [place] [address], [place] [phone] Luis Alberto Georges PA Trochanteric bursitis of left hip (Primary Dx) from Last 3 Months Allergies Active Allergy [...] 08/31/2024 Assessment & Plan (08/31/2024 10:20 AM PHOTOGRAPHIC AIDE): Patient has significant reflux at the right [...] on file Legal Sex Female 10:24 AM PHOTOGRAPHIC AIDE Gender Identity Not on file Sexual Orientation [...] Chronic Care Management On track(2020 7:45 AM PHOTOGRAPHIC AIDE) Mulu Callahan, RN Note: Problem: Chronic Pain [...] Varicose veins of leg with pain, right [place] ARTHROCENTESIS ASPIR&/INJ MAJOR JT/BURSA W/O US Routine 11/29/2024 1:15 PM CDT Trochanteric bursitis of left hip DEXA AXIAL SKELETON BONE DENSITY 1 OR MORE SITES Schedule Routine, Read Routine (OP Routine) 11/14/2021 7:54 AM PHOTOGRAPHIC AIDE Spinal stenosis of lumbar region with radiculopathy [...] Gender: F Study Date: 12/18/2024 09:54:26 AM Crib Clerk: Bess Parker Provider: PAPO HIGGINS Quality: Adequate [...] Gender: F Study Date: 12/18/2024 09:54:26 AM Crib Clerk: Bess Parker Provider: PAPO HIGGINS Quality: Adequate [...] Papo Higgins MD 12/19/2024 7:27:43 AM CDT us Papo Higgins MD IMG US PROCEDURES Final Re sult * ME ARTHROCENTESIS ASPIR&/INJ MAJOR JT/BURSA W/O US (11/29/2024 [...] Bone Density Multi Site (11/14/2021 7:54 AM PHOTOGRAPHIC AIDE) Anatomical Region Laterality Modality Body N/A Digital Radiogra phy 11/14/2021 9:44 AM PHOTOGRAPHIC AIDE Impressions 11/14/2021 1:11 PM PHOTOGRAPHIC AIDE 1. The bone mineral density of the [...] Elaine Graff M.D. Narrative 11/14/2021 1:11 PM PHOTOGRAPHIC AIDE BONE DENSITOMETRY OF THE SPINE AND HIP [...] agrees with it. Electronically signed by: Elaine Garff M.D. 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
--- OUTSIDE RECORDS SUMMARY | 2025-01-01 01:03 | XMS_ITS | Encounter Summary ---
Author Organization [facility] Facility Care Team Providers Care Temperer Name Role Phone Sebastian Colmenares MD Primary Care Provider [phone] Miscellaneous, Not In File Primary Care Provider Unavailable Sebastian Colmenares MD Primary Care Provider [phone] Encounter Details Date Type Department Care Team (Latest Contact Info) Description 06/26/2016 Orders Only [facility] ProviderTesha MD [address] [place] [phone] Social History Tobacco Use Types Packs/Day Years Used Date Smoking Tobacco: Never Assessed Comments Unknown Sex and Gender Information Value Date Recorded Sex Assigned at Not on file Legal Sex Female 10:24 AM OCEAN LIFEGUARD SPECIALIST Gender Identity Not on file Sexual Orientation [...] documented as of this encounter Care Teams Temperer Relationship Specialty Start Date End Date Sebastian Colmenares MD [address] [facility] [address] [place] [address] PCP - General 09/06/17 10/13/17 Miscellaneous, Not In File PCP - General 10/14/17 Sebastian Colmenares MD [address] [facility] [address] [place] [address] PCP - General 11/01/17 documented as of this encounter
--- NOTE | 2025-01-01 07:41 | P.HP_ITS ---
History of Present Illness History of Present Illness Consent: Risks, benefits, and alternatives have been discussed and questions answered. Patient agrees to proceed with procedure. Chief complaint: post menopausal bleeding Narrative: Chelita Boyd is a 74 year old female with postmenopausal bleeding episode. Pelvic ultrasound showed a thickened endometrium at 6mm. It was recommended to undergo D&C hysteroscopy for further evaluation. Risks of infection, bleeding, perforation, and possible pathology are reviewed. Patient voices understanding and agrees to proceed. Review of Systems Review of Systems: not repeated day of surgery; patient states no changes in status [facility] Past Medical History Medical History (Updated 01/01/25 @ 08:21 by Shanta Mckenzie MD) Diabetes Elevated cholesterol GERD (gastroesophageal reflux disease) (normal spontaneous vaginal delivery) X2 Surgical History Surgical History (Updated 01/01/25 @ 08:20 by Shanta Mckenzie MD) Hx of foot surgery 2002 foot spur History of back surgery 2015 and 2021 History of bilateral salpingo-oophorectomy (BSO) 2006 laparoscopic Status post laparoscopy 2002 left ovarian cystectomy and D&C hysteroscopy with polyps Status post cataract surgery Bilateral 2021 Social History Social History Years smoked: 8 Smoking status: Former smoker Smoking end date: 09/20/94 Alcohol intake: never Substance use: never Living arrangements: with family Additional living arrangements comments: Spiritual care concerns: No Meds Home Medications and Allergies Home Medications ?Medication ?Instructions ?Recorded ?Confirmed ?Type acetaminophen 500 mg tablet 1,000 mg PO ONCE PRN pain 12/19/24 12/19/24 History (Acetaminophen Pain Relief) ascorbic acid (vitamin C) 500 mg 500 mg PO DAILY 12/19/24 12/19/24 History chewable tablet (Acerola C) atorvastatin 20 mg tablet 10 mg PO QPM 12/19/24 12/19/24 History calcium carbonate (Calcium 500) 500 mg PO DAILY 12/19/24 12/19/24 History cholecalciferol (vitamin D3) 125 125 mcg PO DAILY 12/19/24 12/19/24 History mcg (5,000 unit) capsule ergocalciferol (vitamin D2) 1,250 1,250 mcg PO .twice monthly 12/19/24 12/19/24 History mcg (50,000 unit) capsule esomeprazole magnesium 40 mg 40 mg PO Q24H 12/19/24 12/19/24 History capsule,delayed release magnesium 500 mg tablet 15 mg PO DAILY 12/19/24 12/19/24 History multivitamin (Daily Multi-Vitamin 1 tablet PO DAILY 12/19/24 12/19/24 History tablet) omega-3 900 mg-dha 360 mg-epa 455 1 cap PO DAILY 12/19/24 12/19/24 History mg-fish oil 1,000 mg capsule (Fish Oil) tumeric 100 mg BYMOUTH DAILY 12/19/24 12/19/24 History valsartan 160 1 tablet PO DAILY 12/19/24 12/19/24 History mg-hydrochlorothiazide 25 mg tablet Allergies Allergy/AdvReac Type Severity Reaction Status Date / Time povidone-iodine (From Allergy Severe rash Verified 12/19/24 14:38 Betadine) povidone Allergy Unknown RASH Verified 12/19/24 14:38 amlodipine AdvReac Intermediate dizziness Verified 12/19/24 14:38 Exam Const: General: healthy appearing and alert Orientation/consciousness: patient oriented x3 Resp: Effort & Inspection: normal respiratory effort : External Female Exam: normal external appearance Speculum Exam - Vagina: normal appearance of the vagina and normal vaginal discharge Speculum Exam - Cervix: normal appearance of the cervix Bimanual exam- vagina & uterus: uterine size normal and consistency normal Bimanual Exam- Adnexa, other: normal adnexae and No adnexal tenderness Neuro: General: patient oriented x3 Assessment and Plan Assessment and plan (1) Post-menopausal bleeding: Code(s): N95.0 - Postmenopausal bleeding Status: Acute Assessment and Plan: Plan to proceed with D&C hysteroscopy
--- NOTE | 2025-01-01 07:41 | WPDHPUPDATE1 ---
History and Physical Update Update Date/Time: 01/01/25 07:41 History and Physical has been reviewed, including an updated exam of the patient. There are NO changes in the patient's condition. Risks, benefits, and alternatives have been discussed and questions answered. Patient agrees to proceed with procedure.
[2025-01-01 08:55] VITALS: PULSE 75; RESP 16; TEMP 36.3; O2SAT 100; BMI 31.0
[2025-01-01] MEDS: LACTATED RINGERS 1,000 ML 30 ML IV CONT (09:10)
[2025-01-01 09:14] VITALS: BP 165/62
--- NOTE | 2025-01-01 10:02 | P.PNAN_ITS ---
Anes - Initial Pre Proc Eval Procedure: Operation Date: 01/01/25 11:00 Proposed Procedures p Hysteroscopy Dilation and Curettage - Shanta Mckenzie MD Date/Time: 01/01/25 10:02 Surgeon: Shanta Mckenzie MD Pre Op Diagnosis: post menopausal bleeding Patient Data Age: 74 Gender: F Height: 1.57 m Weight: 76.9 kg Last Vital Signs Temp 36.3 C L 01/01/25 08:55 Pulse 75 01/01/25 08:55 Resp 16 01/01/25 08:55 BP 165/62 H 01/01/25 09:14 Pulse Ox 100 01/01/25 08:55 O2 Del Method Room Air 01/01/25 08:55 Allergies Allergy/AdvReac Type Severity Reaction Status Date / Time povidone-iodine (From Allergy Severe rash Verified 01/01/25 08:50 Betadine) povidone Allergy Unknown RASH Verified 01/01/25 08:50 amlodipine AdvReac Intermediate dizziness Verified 01/01/25 08:50 Home Medications ?Medication ?Instructions ?Recorded ?Confirmed ?Type acetaminophen 500 mg tablet 1,000 mg PO ONCE PRN pain 12/19/24 01/01/25 History (Acetaminophen Pain Relief) ascorbic acid (vitamin C) 500 mg 500 mg PO DAILY 12/19/24 01/01/25 History chewable tablet (Acerola C) atorvastatin 20 mg tablet 10 mg PO QPM 12/19/24 01/01/25 History calcium carbonate (Calcium 500) 500 mg PO DAILY 12/19/24 01/01/25 History cholecalciferol (vitamin D3) 125 125 mcg PO DAILY 12/19/24 01/01/25 History mcg (5,000 unit) capsule ergocalciferol (vitamin D2) 1,250 1,250 mcg PO .twice monthly 12/19/24 12/19/24 History mcg (50,000 unit) capsule esomeprazole magnesium 40 mg 40 mg PO Q24H 12/19/24 12/19/24 History capsule,delayed release magnesium 500 mg tablet 15 mg PO DAILY 12/19/24 01/01/25 History multivitamin (Daily Multi-Vitamin 1 tablet PO DAILY 12/19/24 01/01/25 History tablet) omega-3 900 mg-dha 360 mg-epa 455 1 cap PO DAILY 12/19/24 01/01/25 History mg-fish oil 1,000 mg capsule (Fish Oil) tumeric 100 mg BYMOUTH DAILY 12/19/24 01/01/25 History valsartan 160 1 tablet PO DAILY 12/19/24 01/01/25 History mg-hydrochlorothiazide 25 mg tablet Patient hx anesthesia problems: none Family hx anesthesia problems: none Results Review: All pre-operative results and documents have been reviewed as part of the pre- operative evaluation. [facility] Past Medical History Medical History Diabetes Elevated cholesterol GERD (gastroesophageal reflux disease) (normal spontaneous vaginal delivery) X2 Surgical History Surgical History Hx of foot surgery 2002 foot spur History of back surgery 2015 and 2021 History of bilateral salpingo-oophorectomy (BSO) 2006 laparoscopic Status post laparoscopy 2001 left ovarian cystectomy and D&C hysteroscopy with polyps Status post cataract surgery Bilateral 2021 Social History Social History Years smoked: 8 Smoking status: Former smoker Smoking end date: 09/20/94 Alcohol intake: never Substance use: never Living arrangements: with family Additional living arrangements comments: Spiritual care concerns: No Anes - Eval Final PreProcedure Day of Procedure 01/01/25 10:02 Patient weight: obese Heart: regular rate and rhythm Lungs: clear to auscultation Airway: Mallampati scale class II Neurological: alert and oriented Last oral intake: >/= 8 hours ASA classification: III Emergent: no Anesthetic plan: proceed Anesthesia type and monitoring: general GIVS and standard monitoring Results Review: All pre-operative results and documents have been reviewed as part of the pre- operative evaluation. Informed Consent: The patient's anesthetic plan and its attendant risks and benefits were discussed with the patient/family/POA. Questions were solicited and answers provided to the satisfaction of the patient/family/POA.
[2025-01-01 11:07] VITALS: BP 165/72; PULSE 74; RESP 14; O2SAT 97
[2025-01-01] MEDS: fentaNYL CITRATE INJ (*CRX) 100 MCG/2 ML VIAL 25 MCG IV PUSH ×2 (11:13→11:30)
--- NOTE | 2025-01-01 11:14 | P.OP_ITS ---
Procedure Note - Detailed Date of Procedure 01/01/25 Pre-op Diagnosis post menopausal bleeding Post-op Diagnosis Same Procedure Performed D&C hysteroscopy Surgeon Shanta Mckenzie MD Anesthesia MAC Findings The uterus sounds to 8cm. There was a large cystic polyp anterior right. There are multiple scattered cystic lesions from very tiny to approximately 1/2cm. Underlying endometrium appears atrophic Description of Procedure The patient was taken to the operating room and placed under anesthesia in the dorsal lithotomy position. She was prepped and draped in the usual sterile fashion. [place] speculum was placed in the vagina and the cervix grasped on the anterior lip with a tenaculum. The uterus is sounded to 8cm. The diagnostic hysteroscope was placed and with the above-stated findings the Aveta resection device is placed. Under direct visualization the large cystic polyp was removed. I also removed as many of the small cystic lesions as I was able. The hysteroscope was then removed. The sharp curette was used to curette the endometrium until a good uterine cry was noted in areas. Minimal material was obtained given the appearance. All instruments were then removed. Sponge, needle, and instrument counts are correct per the OR staff. The patient was awakened from anesthesia and taken to recovery in stable condition. Estimated Blood Loss 5 Drains No Packing No Pathology Yes (Endometrial shavings and curettings) Complications No immediate complications Condition Stable Disposition PACU
[2025-01-01 11:30] VITALS: BP 177/80; PULSE 72; RESP 14; O2SAT 98
[2025-01-01] MEDS: KETOROLAC 30 MG/ML VIAL (*BKC) IV PUSH (11:48)
[2025-01-01 12:00] VITALS: BP 185/77; PULSE 56; RESP 16
[2025-01-01] MEDS: oxyCODONE HCL (*CRX) 5 MG TAB IR PO (12:04)
[2025-01-01 12:30] VITALS: BP 184/72; PULSE 58; RESP 16
== END 2025-01-01 12:40 | disposition home or self-care (01) ==
PROVIDERS: PCP Family Medicine; Visit Provider Obstetrics & Gynecology Gynecology
PROC: 0U5B8ZZ Destruction of Endometrium, Via Natural or Artificial Opening Endoscopic (ICD-10-PCS; CPT 58563; principal; 2025-01-01 11:00)
DX: R93.89 Abnormal findings on diagnostic imaging of other specified body structures (principal); N84.0 Polyp of corpus uteri; E11.9 Type 2 diabetes mellitus without complications; E78.00 Pure hypercholesterolemia, unspecified; K21.9 Gastro-esophageal reflux disease without esophagitis; E66.9 Obesity, unspecified; Z68.31 Body mass index [BMI] 31.0-31.9, adult; Z79.899 Other long term (current) drug therapy; Z98.890 Other specified postprocedural states; Z98.1 Arthrodesis status; Z87.891 Personal history of nicotine dependence
CPT/HCPCS: 58558; 88305; A4248; A9270; J1885; J2003; J2704; J3010; J7120